=== PATIENT | male | born 1955 | race African-American/Black ===

== ENCOUNTER 2020-11-24 14:25 | Inpatient (IN) | payer MEDICARE, BC ==
[~2020-11-24] VITALS: Ht 182.9 cm; Wt 87.2 kg
--- NOTE | 2020-11-24 14:32 | NUR ---
TO ER BED 3, C/O DIZZINESS WHILE OUTSIDE EATING LUNCH WITH FAMILY, AAOX4, BREATHING EVEN AND UNLABORED, AWAITING MD KURTZ
--- NOTE | 2020-11-24 15:26 | NUR ---
RUSSIAN HISTORY PROFESSOR AT BEDSIDE
[2020-11-24] MEDS ORDERED: IV NS 0.9% 500 ML BAG IV ONE (15:30)
[2020-11-24 15:38] LABS: BASOPHILS % (AUTO) 0.3 % (0.0-2.0); EOSINOPHILS % (AUTO) 1.7 % (0.0-6.0); HEMATOCRIT 44 % (39-51); HEMOGLOBIN 14.4 g/dL (13.5-17.5); LYMPHOCYTES # (AUTO) 1.3 K/uL (0.8-4.8); MEAN CORPUSCULAR HGB CONC 33 g/dl (31.0-36.0); MEAN CORPUSCULAR VOLUME 87 fL (80-96); MONOCYTES # (AUTO) 0.5 K/uL (0.1-1.30); MONOCYTES % (AUTO) 6.9 % (2.0-12.0); NEUTROPHILS # (AUTO) 4.6 K/uL (1.8-8.9); NEUTROPHILS % (AUTO) 71.1 % (43.0-81.0); PLATELET COUNT (AUTO) 148 K/uL (150-450); RED BLOOD CELL COUNT(AUTO) 5.02 MIL/uL (4.5-6.0); WHITE BLOOD COUNT (AUTO) 6.5 K/uL (4.3-11.0)
--- NOTE | 2020-11-24 15:41 | NUR ---
GAVE AN UPDATE TO VANNA,
[2020-11-24 15:48] LABS: CALCIUM, SERUM 9.1 mg/dL (8.5-10.1); CREATININE 1.9 mg/dL (0.6-1.3)
[2020-11-24 15:49] LABS: POTASSIUM 2.8 mmol/L (3.5-5.1)
[2020-11-24] MEDS ORDERED: ASPI-1169 PO (16:07)
[2020-11-24] MEDS ORDERED: DAPA1TAB PO (16:07)
[2020-11-24] MEDS ORDERED: CHLO25TA2 PO (16:07)
[2020-11-24] MEDS ORDERED: AMLO1TAB39 PO (16:07)
[2020-11-24] MEDS ORDERED: ALLO300T2 PO (16:07)
[2020-11-24] MEDS ORDERED: SITA50TA PO (16:07)
[2020-11-24] MEDS ORDERED: POTA-10 PO (16:07)
[2020-11-24] MEDS ORDERED: FEXO-65 PO (16:07)
--- NOTE | 2020-11-24 16:14 | NUR ---
MOVE SHEET SUBMITTED AND CALLED FOR TELE BED.
--- NOTE | 2020-11-24 16:26 | NUR ---
TAKEN TO CT
[2020-11-24] MEDS ORDERED: Magnesium 1GM/D5W 100ML PREMIX 100 ML IV ONE ×2 (16:30→16:45)
[2020-11-24] MEDS: POTASSIUM CL. PREMIX PERIPHER. 50 ML IV SCH ×3 (16:31→19:22)
[2020-11-24] MEDS ORDERED: POTASSIUM CL. PREMIX PERIPHER. 150 ML ONE (16:45)
[2020-11-24] MEDS ORDERED: IV NS 0.9% 1,000 ML IV ONE (17:00)
[2020-11-24] MEDS ORDERED: ZOLPIDEM TARTRATE 5 MG TABLET PO PRN (17:00)
[2020-11-24] MEDS ORDERED: ONDANSETRON HCL/PF 4 MG/2 ML VIAL IVP PRN (17:00)
[2020-11-24] MEDS ORDERED: Z GUARD REMEDY 2 OZ OINT TP PRN (17:00)
[2020-11-24] MEDS ORDERED: MAGNESIUM HYDROXIDE 30 ML UDC PO PRN (17:00)
[2020-11-24] MEDS ORDERED: ACETAMINOPHEN 325 MG TABLET PO PRN (17:00)
[2020-11-24] MEDS ORDERED: MAG HYDROX/AL HYDROX/SIMETH 30 ML UDC PO PRN (17:00)
[2020-11-24] MEDS ORDERED: DEXTROSE 50%-WATER 50 ML DISP.SYRIN IV PRN (17:30)
[2020-11-24] MEDS ORDERED: IV NS 0.9% 1,000 ML BAG IV ONE (17:30)
[2020-11-24] MEDS ORDERED: INSULIN REGULAR, HUMAN 100 UNIT/ML 3 ML VIAL SQ PRN (17:30)
[2020-11-24 21:00] VITALS: BP 151/88
[2020-11-24 21:05] VITALS: BP 151/88
--- NOTE | 2020-11-24 21:15 | NUR ---
TELE ADMITTING RN NOTE Patient is A&Ox4, Initial VS B/P 151/88, HR 75, Temp 97.8, O2 98%, RR 16. Patient admitted to [id number] with diagnosis syncope, hypokalemia, LUIS MIGUEL. Denies dizziness, lightheadedness, fatigue, or nausea at this time. Admitting assessment completed. Oriented patient to unit protocols, bed control, call light/remote. All safety measures in place. On cardiac/tele monitor. Will continue to monitor patient closely.
[2020-11-24] MEDS: BLOOD SUGAR DIAGNOSTIC 1 EACH STRIP IN SCH (21:53)
[2020-11-24 22:30] VITALS: BP_SYST 120; BP_SYST 124; BP_SYST 133; BP_DIAS 82; BP_DIAS 88; BP_DIAS 93
--- NOTE | 2020-11-24 22:35 | NUR ---
Orthostatic B/P laying 124/82, sitting, 120/88, standing 133/93.
[2020-11-24 22:49] LABS: CALCIUM, SERUM 8.9 mg/dL (8.5-10.1); CREATININE 1.8 mg/dL (0.6-1.3); POTASSIUM 3.5 mmol/L (3.5-5.1)
[2020-11-25 00:14] VITALS: BP 128/84
[2020-11-25 04:00] VITALS: BP 119/77
[2020-11-25 06:32] LABS: BASOPHILS % (AUTO) 0.3 % (0.0-2.0); EOSINOPHILS % (AUTO) 2.7 % (0.0-6.0); HEMATOCRIT 41 % (39-51); HEMOGLOBIN 13.8 g/dL (13.5-17.5); LYMPHOCYTES # (AUTO) 1.1 K/uL (0.8-4.8); LYMPHOCYTES % (AUTO) 19.9 % (20.0-44.0); MEAN CORPUSCULAR HGB CONC 33 g/dl (31.0-36.0); MEAN CORPUSCULAR VOLUME 87 fL (80-96); MONOCYTES # (AUTO) 0.4 K/uL (0.1-1.30); MONOCYTES % (AUTO) 8.1 % (2.0-12.0); NEUTROPHILS # (AUTO) 3.6 K/uL (1.8-8.9); PLATELET COUNT (AUTO) 137 K/uL (150-450); RED BLOOD CELL COUNT(AUTO) 4.72 MIL/uL (4.5-6.0); WHITE BLOOD COUNT (AUTO) 5.3 K/uL (4.3-11.0)
--- NOTE | 2020-11-25 06:37 | NUR ---
MS RN CLOSING NOTES Patient has been A&Ox4. Sleeping well throughout night though easy to wake. SR on monitor HR approx. 70bpm. No s/s of hypo or hyperglycemic reactions. No c/o pain or discomfort. Denies dizziness, lightheadedness or nausea at all throughout night including while standing during orthostatic BP. Patient on bedrest overnight for fall risk and until further cardiac workup in AM. No signs of distress.
[2020-11-25] MEDS: BLOOD SUGAR DIAGNOSTIC 1 EACH STRIP IN SCH ×4 (06:44→21:25)
[2020-11-25 06:47] LABS: CALCIUM, SERUM 8.7 mg/dL (8.5-10.1); CREATININE 1.4 mg/dL (0.6-1.3); MAGNESIUM 2.1 mg/dL (1.8-2.4); PHOSPHORUS 3.2 mg/dL (2.5-4.9); POTASSIUM 3.2 mmol/L (3.5-5.1)
--- NOTE | 2020-11-25 07:20 | NUR ---
COUNTER MAKER OPENING NOTES RECEIVED PATIENT IN BED, AWAKE, ALERT AND ORIENTED X4, NOT IN ANY FORM OF ACUTE DISTRESS NOTED. ON ROOM AIR TOLERATING WELL. IV ACCESS ON LAC G#20 SALINE LOCKED, PATENT AND FLUSHES WELL. NO COMPLAINTS OF PAIN, NO COMPLAINTS OF DIZZINESS NOTED. SAFETY PRECAUTIONS IN PLACE: BED ON LOWEST LOCKED POSITION, SIDE RAILS UP X 2, KEPT CALL LIGHT WITHIN EASY REACH. WILL CONTINUE TO MONITOR ACCORDINGLY.
--- NOTE | 2020-11-25 07:22 | NUR ---
RN NOTES ON TELE MONITOR SHOWING SINUS RHYTHM HR AT 71.
[2020-11-25 08:00] VITALS: BP 135/88
[2020-11-25] MEDS: ASPIRIN 81 MG TAB.CHEW PO SCH (08:29)
[2020-11-25] MEDS: POTASSIUM CHLORIDE 10 MEQ TABLET.SA PO SCH (08:29)
[2020-11-25] MEDS: LINAGLIPTIN 5 MG TABLET PO SCH (08:29)
[2020-11-25] MEDS: cetrizine 10 MG TABLET PO SCH (08:29)
[2020-11-25] MEDS: LOSARTAN POTASSIUM 50 MG TABLET PO SCH (08:30)
[2020-11-25] MEDS: AMLODIPINE BESYLATE 5 MG TABLET PO SCH (08:30)
[2020-11-25 08:38] VITALS: BP 135/88
[2020-11-25] MEDS ORDERED: [UNRECOGNIZED DRUG - OTHER] PO SCH (09:00)
[2020-11-25] MEDS ORDERED: DAPAGLIFLOZIN PO SCH (09:00)
[2020-11-25] MEDS ORDERED: Medication Not On Formulary EA (Amlodipine Bes/Olmesartan Med (Azor 5-40 Mg Tablet) 1 EA PO SCH (09:00)
[2020-11-25] MEDS ORDERED: SITAGLIPTIN PHOSPHATE 50 MG TABLET PO SCH (09:00)
[2020-11-25] MEDS ORDERED: METFORMIN HCL PO SCH (09:00)
[2020-11-25] MEDS ORDERED: POTASSIUM CHLORIDE 20 MEQ TAB.PRT.SR PO ONE (09:00)
[2020-11-25 09:53] LABS: THYROID STIMULATING HORMONE 0.739 uIU/mL (0.358-3.74)
[2020-11-25] MEDS: IV NS 0.9% 1,000 ML IV PRN ×2 (10:12→21:32)
[2020-11-25] MEDS: POTASSIUM CHLORIDE 20 MEQ TAB.PRT.SR PO SCH ×2 (10:12→10:57)
--- NOTE | 2020-11-25 12:00 | NUR ---
RN NOTES BLOOD SUGAR CHECKED, RESULT 122, NO INSULIN COVERAGE NEEDED.
[2020-11-25 16:35] VITALS: BP 135/92
--- NOTE | 2020-11-25 16:36 | NUR ---
RN NOTES BLOOD SUGAR CHECKED, 95 MG/DL. NO INSULIN COVERAGE NEEDED.
--- NOTE | 2020-11-25 18:28 | NUR ---
RACK CARRIER CLOSING NOTES PATIENT IN BED, AWAKE, ALERT AND ORIENTED X4, NOT IN ANY FORM OF ACUTE DISTRESS NOTED. ON ROOM AIR TOLERATING WELL. IV ACCESS ON LAC G#20 ONGOING IVF OF NS 1L X 75 CC/HR, INFUSING WELL, NO S/SX OF INFILTRATION NOTED. NO COMPLAINTS OF PAIN AT THIS TIME, NO COMPLAINTS OF DIZZINESS NOTED. ON EXTERNAL MONITOR SHOWING SR HR AT 70'S. SAFETY PRECAUTIONS IN PLACE: BED ON LOWEST LOCKED POSITION, SIDE RAILS UP X 2, KEPT CALL LIGHT WITHIN EASY REACH. ALL NEEDS ATTENDED AND MET, DUE MEDS GIVEN ORDERED. WILL ENDORSE TO ONCOMING SHIFT FOR CASEY.
--- NOTE | 2020-11-25 19:45 | NUR ---
TELE/RN OPENING NOTE RECEIVED PATIENT RESTING IN BED. AWAKE, ALERT AND ORIENTED X 4. ABLE TO MAKE NEEDS KNOWN. DENIES PAIN AT THIS TIME. CONTINUES ON ROOM AIR WITH NO S/SX OF RESPIRATORY DISTRESS NOTED. IV ACCESS TO LEFT AC #20G INTACT AND PATENT. CONTINUES ON IVF NS @ 75ML/HR. CONTINUES ON TELE MONITOR WITH CURRENT READING SR. CALL LIGHT WITHIN REACH. ASPIRATION. FALL AND SAFETY PRECAUTIONS MAINTAINED. WILL CONTINUE TO MONITOR.
[2020-11-25 20:00] VITALS: BP 144/90
[2020-11-26] VITALS: BP 139/79
[2020-11-26 01:13] LABS: BILIRUBIN,URINE NEGATIVE (NEGATIVE); COLOR,URINE YELLOW (YELLOW); LEUKOCYTE ESTERASE ,URINE NEGATIVE (NEGATIVE); NITRITE, URINE NEGATIVE (NEGATIVE); PROTEIN,URINE NEGATIVE (NEGATIVE); UGLUCOSE >=1000 mg/dL (NEGATIVE); UROBILINOGEN,URINE 0.2 EU/dL (0.2)
[2020-11-26 02:32] LABS: BACTERIA,URINE None seen /HPF (None Seen); RBC,URINE 0-2 /HPF (0-2); SQUAMOUS EPITHELIAL CELL,UR Few /HPF (None Seen); WBC,URINE 0-2 /HPF (0-3)
[2020-11-26 04:00] VITALS: BP 135/91
[2020-11-26 04:09] LABS: EOSINOPHIL,URINE None Seen
--- NOTE | 2020-11-26 06:50 | NUR ---
TELE/RN CLOSING NOTE PATIENT CURRENTLY RESTING IN BED. AWAKE, ALERT AND ORIENTED X 4. ABLE TO MAKE NEEDS KNOWN. DENIES PAIN AT THIS TIME. CONTINUES ON ROOM AIR WITH NO S/SX OF RESPIRATORY DISTRESS NOTED. IV ACCESS TO LEFT AC #20G INTACT AND PATENT. CONTINUES ON IVF NS @ 75ML/HR. CONTINUES ON TELE MONITOR WITH CURRENT READING SR. CALL LIGHT WITHIN REACH. ASPIRATION. FALL AND SAFETY PRECAUTIONS MAINTAINED. WILL ENDORSE PLAN OF CARE TO ONCOMING SHIFT.
--- NOTE | 2020-11-26 07:30 | NUR ---
PATIENT RECEIVED RESTING COMFORTABLY IN BED. NO S/S OR C/O PAIN OR DISTRESS NOTED. SIDE RAILS UP X2, CALL LIGHT LEFT WITHIN REACH. WILL CONTINUE PLAN OF CARE
[2020-11-26 08:00] VITALS: BP 134/98
[2020-11-26] MEDS: ASPIRIN 81 MG TAB.CHEW PO SCH (08:09)
[2020-11-26] MEDS: POTASSIUM CHLORIDE 10 MEQ TABLET.SA PO SCH (08:09)
[2020-11-26] MEDS: LINAGLIPTIN 5 MG TABLET PO SCH (08:09)
[2020-11-26] MEDS: LOSARTAN POTASSIUM 50 MG TABLET PO SCH (08:10)
[2020-11-26] MEDS: cetrizine 10 MG TABLET PO SCH (08:10)
[2020-11-26 08:11] VITALS: BP 139/84
[2020-11-26] MEDS: BLOOD SUGAR DIAGNOSTIC 1 EACH STRIP IN SCH ×2 (08:11→12:09)
[2020-11-26] MEDS: AMLODIPINE BESYLATE 5 MG TABLET PO SCH (08:11)
[2020-11-26] MEDS ORDERED: POTASSIUM CHLORIDE 20 MEQ TAB.PRT.SR PO SCH (09:00)
[2020-11-26 09:19] LABS: BASOPHILS % (AUTO) 0.2 % (0.0-2.0); EOSINOPHILS % (AUTO) 3.1 % (0.0-6.0); HEMATOCRIT 43 % (39-51); HEMOGLOBIN 14.3 g/dL (13.5-17.5); LYMPHOCYTES # (AUTO) 1.4 K/uL (0.8-4.8); LYMPHOCYTES % (AUTO) 26.5 % (20.0-44.0); MEAN CORPUSCULAR HGB CONC 33 g/dl (31.0-36.0); MEAN CORPUSCULAR VOLUME 88 fL (80-96); MONOCYTES # (AUTO) 0.4 K/uL (0.1-1.30); MONOCYTES % (AUTO) 6.8 % (2.0-12.0); NEUTROPHILS # (AUTO) 3.3 K/uL (1.8-8.9); NEUTROPHILS % (AUTO) 63.4 % (43.0-81.0); PLATELET COUNT (AUTO) 148 K/uL (150-450); RED BLOOD CELL COUNT(AUTO) 4.93 MIL/uL (4.5-6.0); WHITE BLOOD COUNT (AUTO) 5.2 K/uL (4.3-11.0)
[2020-11-26 09:37] LABS: ALBUMIN 3.4 g/dL (3.4-5.0); BILIRUBIN,TOTAL 0.6 mg/dL (0.2-1.0); CREATININE 1.5 mg/dL (0.6-1.3); PHOSPHORUS 2.7 mg/dL (2.5-4.9); POTASSIUM 3.3 mmol/L (3.5-5.1); TOTAL PROTEIN, SERUM 6.8 g/dL (6.4-8.2)
[2020-11-26] MEDS ORDERED: POTASSIUM CHLORIDE 20 MEQ TAB.PRT.SR PO ONE (11:30)
--- NOTE | 2020-11-26 14:00 | NUR ---
DISCHARGE INSTRUCTIONS GIVEN ORDERED. ENCOURAGED TO FOLLOW UP WITH PMS INSTRUCTED. ALL QUESTIONS AND CONCERNS ADDRESSED. PATIENT VERBALIZED UNDERSTANDING. MEDICATIONS RECONCILIATION FORM COMPLETED AND COPY GIVEN TO PATIENT. IV REMOVED WITH CATHETER INTACT, PRESSURE DRESSING APPLIED. PATIENT TAKEN TO VEHICLE WITH ALL PERSONAL BELONGINGS, ACCOMPANIED BY STAFF AND FAMILY MEMBER. NO DISTRESS NOTED AT TIME OF DEPARTURE.
[2020-11-27 10:07] LABS: *SPE A/G RATIO 1.2 (0.7-1.7); *SPE ALPHA-1-GLOBULIN 0.2 g/dL (0.0-0.4); *SPE ALPHA-2-GLOBULIN 0.5 g/dL (0.4-1.0); *SPE M-SPIKE Not Observed g/dL (Not Observed)
== END 2020-11-26 14:30 | disposition home or self-care (01) | DRG 640 ==
LOC: ER 14:29 → TELE 20:36 → MED 11-26 11:13
PROVIDERS: ADMIT Family Medicine; ATTEND Family Medicine
DX: E86.9 Volume depletion, unspecified (principal); N17.0 Acute kidney failure with tubular necrosis; E87.6 Hypokalemia; I12.9 Hypertensive chronic kidney disease with stage 1 through stage 4 chronic kidney disease, or unspecified chronic kidney disease; E11.22 Type 2 diabetes mellitus with diabetic chronic kidney disease; N18.9 Chronic kidney disease, unspecified; Z20.822 Contact with and (suspected) exposure to COVID-19; I25.10 Atherosclerotic heart disease of native coronary artery without angina pectoris; E11.9 Type 2 diabetes mellitus without complications; M10.9 Gout, unspecified; T44.5X5A Adverse effect of predominantly beta-adrenoreceptor agonists, initial encounter; T50.2X5A Adverse effect of carbonic-anhydrase inhibitors, benzothiadiazides and other diuretics, initial encounter; Y92.9 Unspecified place or not applicable; L50.9 Urticaria, unspecified; Z82.49 Family history of ischemic heart disease and other diseases of the circulatory system; Z83.3 Family history of diabetes mellitus; Z86.73 Personal history of transient ischemic attack (TIA), and cerebral infarction without residual deficits; Z79.82 Long term (current) use of aspirin; Z79.84 Long term (current) use of oral hypoglycemic drugs; Z79.899 Other long term (current) drug therapy
CPT/HCPCS: 36415; 70450-TC; 71045-TC; 80048-TC; 80053-TC; 80061-TC; 81001; 82550-TC; 82962-TC; 83735-TC; 83970; 84100-TC; 84155; 84165; 84439-TC; 84443-TC; 84484-TC; 85025-TC; 85378-TC; 87081-TC; 93307-TC; 93880-TC; C9803; G0378; J1815; J3475; J3480; J7030; J7040; J7050